=== PATIENT | female | born 1965 | race Two or more races ===

== ENCOUNTER 2017-11-19 16:34 | Inpatient (IN) | payer OTHER ==
[~2017-11-19] VITALS: Ht 160 cm; Wt 71.8 kg
[2017-11-19 16:54] VITALS: Ht 160 cm; Wt 71.8 kg
[2017-11-19 17:36] LABS: CALCIUM 9.1 mg/dL (8.5-10.1); CARBON DIOXIDE 27.1 mmol/L (21-32); CREATININE SERUM 1.1 mg/dL (0.6-1.0)
[2017-11-19 17:40] LABS: BASOPHIL % 0.5 % (0-2); PLATELET COUNT 276 x10^3mcL (130-400); RED CELL DISTRIBUTION WIDTH 13.8 % (11.5-14.5)
[2017-11-19 17:42] LABS: ALBUMIN 3.7 g/dL (3.4-5.0); BILIRUBIN TOTAL 0.9 mg/dL (0.20-1.00); TOTAL PROTEIN, SERUM 7.7 g/dL (6.4-8.2)
[2017-11-19 17:58] LABS: microscopic required? YES; urine erythrocyte 2+ (NEGATIVE)
[2017-11-19] MEDS ORDERED: CIPRO500 MG PO (19:14)
[2017-11-19] MEDS ORDERED: SIMVASTATIN20 M1 PO (19:14)
[2017-11-19] MEDS ORDERED: IBUPROFEN400 MG PO (19:15)
[2017-11-19 19:49] LABS: T3 TOTAL 0.84 ng/mL
[2017-11-19 19:51] LABS: FREE T4 1.17 ng/dL (0.76-1.46); FREE THYROXINE INDEX 3.3 ug/dL (1.4-4.5); T4(THYROXINE) 9.4 ug/dL (4.7-13.3)
[2017-11-19 19:59] LABS: CHOLESTEROL/HDL RATIO 4.6; MAGNESIUM 2.1 mg/dL (1.8-2.4); PHOSPHOROUS 5.4 mg/dL (2.5-4.9)
[2017-11-19 20:14] LABS: AMPHETAMINE QUAL UR NONE DETECTED (NEG <=1000)
[2017-11-19 20:44] VITALS: BP 109/52
[2017-11-19 20:59] VITALS: BP 109/52
[2017-11-20 05:02] VITALS: BP 94/44
[2017-11-20 06:42] LABS: BASOPHIL % 0.5 % (0-2); PLATELET COUNT 238 x10^3mcL (130-400); RED CELL DISTRIBUTION WIDTH 13.6 % (11.5-14.5)
[2017-11-20 06:55] LABS: CALCIUM 8.4 mg/dL (8.5-10.1); CARBON DIOXIDE 26.7 mmol/L (21-32); CHLORIDE SERUM 108 mmol/L (98-107); CREATININE SERUM 0.9 mg/dL (0.6-1.0); GFR1 > 60 mL/min; GLUCOSE SERUM 87 mg/dL (74-106); POTASSIUM SERUM 4.8 mmol/L (3.5-5.1); SODIUM SERUM 142 mmol/L (136-145)
[2017-11-20 07:45] VITALS: BP 106/67
[2017-11-20 12:50] VITALS: BP 106/58
[2017-11-20 17:13] VITALS: BP 115/64
[2017-11-20 22:07] VITALS: BP 99/63
[2017-11-21 05:57] LABS: BASOPHIL % 0.5 % (0-2); PLATELET COUNT 221 x10^3mcL (130-400); RED CELL DISTRIBUTION WIDTH 14.1 % (11.5-14.5)
[2017-11-21 06:24] LABS: CALCIUM 8.3 mg/dL (8.5-10.1); CARBON DIOXIDE 26.8 mmol/L (21-32); CHLORIDE SERUM 107 mmol/L (98-107); CREATININE SERUM 0.8 mg/dL (0.6-1.0); GFR1 > 60 mL/min; GLUCOSE SERUM 86 mg/dL (74-106); PHOSPHOROUS 4.2 mg/dL (2.5-4.9); POTASSIUM SERUM 3.8 mmol/L (3.5-5.1); SODIUM SERUM 142 mmol/L (136-145)
[2017-11-21 06:39] VITALS: BP 98/54
[2017-11-21 08:51] VITALS: BP 116/60
[2017-11-21 13:26] VITALS: BP 123/70
[2017-11-21] MEDS ORDERED: DUL10S RC (15:03)
[2017-11-21 15:06] VITALS: BP 123/70
[2017-11-21] MEDS ORDERED: LAC PO (15:11)
[2017-11-21 16:37] VITALS: BP 121/72
== END 2017-11-21 16:50 | disposition home or self-care (01) | DRG 391 ==
LOC: ED 16:34 → DU 18:59
PROVIDERS: Family Medicine; Specialist
DX: K59.00 Constipation, unspecified (principal); N17.0 Acute kidney failure with tubular necrosis; N39.0 Urinary tract infection, site not specified; E78.00 Pure hypercholesterolemia, unspecified; E83.39 Other disorders of phosphorus metabolism; R31.9 Hematuria, unspecified; E86.0 Dehydration; E83.51 Hypocalcemia; E78.5 Hyperlipidemia, unspecified; Z90.710 Acquired absence of both cervix and uterus; Z98.891 History of uterine scar from previous surgery; Z90.722 Acquired absence of ovaries, bilateral; Z82.49 Family history of ischemic heart disease and other diseases of the circulatory system
CPT/HCPCS: 82962; 83880; 84439; J0696; J1885; J2405; J3010; J3490; J7030; Q0092